=== PATIENT | male | born 1990 | race Hispanic/Latino ===

== ENCOUNTER 2021-04-05 20:50 | Emergency (ER) | payer SELFPAY ==
[~2021-04-05] VITALS: Ht 170.2 cm; Wt 78.0 kg
[2021-04-05 22:35] LABS: BASOPHILS % 0.4 % (0.0-1.0); EOSINOPHILS # (AUTO) 0.1 (0.0-0.4); EOSINOPHILS % 1.1 % (0.0-6.0); HEMATOCRIT 53.1 % (38.2-49.6); HEMOGLOBIN 18.1 g/dL (14.0-18.0); LYMPHOCYTES # (AUTO) 3.4 (1.0-3.2); LYMPHOCYTES % 34.6 % (18.0-39.1); MEAN CORPUSCULAR HEMOGLOBIN 29.4 pg (28-32); MEAN CORPUSCULAR HGB CONC 34.1 g/dL (31-35); MEAN CORPUSCULAR VOLUME 86.2 fL (81-99); MONOCYTES # (AUTO) 0.7 (0.2-0.8); MONOCYTES % 7.3 % (4.4-11.3); NEUTROPHILS # (AUTO) 5.6 (2.1-6.9); NEUTROPHILS % 56.2 % (38.7-80.0); PLATELET COUNT 327 x10e3/uL (140-360); RED BLOOD COUNT 6.16 x10e6/uL (4.3-5.7); RED CELL DISTRIBUTION WIDTH 13.1 % (11.7-14.4)
[2021-04-05 22:58] LABS: ALBUMIN 4.8 g/dL (3.5-5.0); ALBUMIN/GLOBULIN RATIO 1.1 (0.8-2.0); ANION GAP 18.5 mmol/L (8-16); CALCIUM 10.2 mg/dL (8.4-10.2); CREATININE, SERUM 0.93 mg/dL (0.72-1.25); POTASSIUM 3.5 mmol/L (3.5-5.1)
[2021-04-05 23:11] LABS: CREATINE KINASE MB 2.5 ng/mL (0-5.0)
[2021-04-05] MEDS ORDERED: SODIUM CHLORIDE 0.9% 1000ML 1,000 ML IV STA (23:27)
[2021-04-05 23:35] LABS: AMPHETAMINES SCREEN,URINE NEGATIVE (NEGATIVE); BENZODIAZEPINES SCREEN,URINE NEGATIVE (NEGATIVE); PHENCYCLIDINE SCREEN,URINE NEGATIVE (NEGATIVE)
[2021-04-06 02:43] VITALS: BP 139/77
== END 2021-04-06 02:48 | disposition home or self-care (01) ==
LOC: ER 21:05
DX: R07.89 Other chest pain (principal)
CPT/HCPCS: 36415; 71045; 80053; 80307; 82550; 82553; 84484; 85025; 85379; 93005; 99284

== ENCOUNTER 2024-05-03 20:23 | Emergency (ER) | payer SELFPAY ==
[~2024-05-03] VITALS: Ht 170.2 cm; Wt 72.6 kg
[2024-05-03 20:38] VITALS: TEMP 99.6
[2024-05-03] MEDS ORDERED: METHYLPREDNISOLONE SOD SUCC 125 MG/2ML VIAL ONE (20:46)
[2024-05-03] MEDS: METHYLPREDNISOLONE SOD SUCC 125 MG/2ML VIAL IM ONE (20:54)
[2024-05-03 22:18] VITALS: PULSE 82; RESP 20; O2SAT 100
== END 2024-05-03 22:40 | disposition home or self-care (01) ==
LOC: ER 20:30
DX: R50.9 Fever, unspecified (principal); R51.9 Headache, unspecified; J02.9 Acute pharyngitis, unspecified; Z77.028 Contact with and (suspected) exposure to other hazardous aromatic compounds; E11.9 Type 2 diabetes mellitus without complications; K21.9 Gastro-esophageal reflux disease without esophagitis; F17.210 Nicotine dependence, cigarettes, uncomplicated
CPT/HCPCS: 71046; 99283; J2919

== ENCOUNTER 2024-05-15 21:36 | Emergency (ER) | payer SELFPAY ==
[~2024-05-15] VITALS: Ht 170.2 cm; Wt 72.6 kg
[2024-05-15] MEDS ORDERED: KETOROLAC TROMETHAMINE 30 MG/ML VIAL IV STA ×2 (21:42→21:44)
[2024-05-15] MEDS ORDERED: ACETAMINOPHEN 325 MG TAB ONE (21:52)
[2024-05-15] MEDS: METHYLPREDNISOLONE SOD SUCC 125 MG/2ML VIAL IV STA (21:53)
[2024-05-15] MEDS ORDERED: SODIUM CHLORIDE 0.9% 1000ML 2,000 ML ONE (21:53)
[2024-05-15] MEDS: ACETAMINOPHEN 325 MG TAB PO STA (21:54)
[2024-05-15] MEDS: SODIUM CHLORIDE 0.9% 1000ML 2,000 ML IV STA (21:55)
[2024-05-15] MEDS: KETOROLAC TROMETHAMINE 30 MG/ML VIAL IV STA (21:58)
[2024-05-15] MEDS ORDERED: IOPAMIDOL 370 MG/ML 100 ML INFUS..BTL INJ ONE (22:00)
[2024-05-15 22:08] LABS: BASOPHILS % 0.3 % (0.0-1.0); EOSINOPHILS % 0.2 % (0.0-6.0); HEMATOCRIT 45.1 % (38.2-49.6); HEMOGLOBIN 14.8 g/dL (14.0-18.0); LYMPHOCYTES # (AUTO) 1.8 (1.0-3.2); LYMPHOCYTES % 16.8 % (18.0-39.1); MEAN CORPUSCULAR HEMOGLOBIN 29.1 pg (28-32); MEAN CORPUSCULAR HGB CONC 32.8 g/dL (31-35); MEAN CORPUSCULAR VOLUME 88.8 fL (81-99); MONOCYTES # (AUTO) 0.6 (0.2-0.8); MONOCYTES % 5.8 % (4.4-11.3); NEUTROPHILS # (AUTO) 8.4 (2.1-6.9); NEUTROPHILS % 76.6 % (38.7-80.0); PLATELET COUNT 247 x10e3/uL (140-360); RED BLOOD COUNT 5.08 x10e6/uL (4.3-5.7); RED CELL DISTRIBUTION WIDTH 11.9 % (11.7-14.4); WHITE BLOOD COUNT 10.95 x10e3/uL (4.8-10.8)
[2024-05-15 22:20] LABS: AMPHETAMINES SCREEN,URINE NEGATIVE (NEGATIVE); BENZODIAZEPINES SCREEN,URINE NEGATIVE (NEGATIVE); CANNABINOIDS SCREEN,URINE NEGATIVE (NEGATIVE); METHADONE SCREEN, URINE NEGATIVE (NEGATIVE); OPIATES SCREEN,URINE NEGATIVE (NEGATIVE); PHENCYCLIDINE SCREEN,URINE NEGATIVE (NEGATIVE)
[2024-05-15 22:23] LABS: ALBUMIN 3.9 g/dL (3.5-5.0); ALBUMIN/GLOBULIN RATIO 0.8 (0.8-2.0); ANION GAP 19.8 mmol/L (8-16); BILIRUBIN,TOTAL 0.7 mg/dL (0.2-1.2); CALCIUM 10.5 mg/dL (8.4-10.2); CREATININE, SERUM 1.18 mg/dL (0.72-1.25); POTASSIUM 3.8 mmol/L (3.5-5.1); TOTAL PROTEIN 8.9 g/dL (6.5-8.1)
[2024-05-15 22:29] LABS: TROPONIN I 0.005 ng/mL (0-0.300)
[2024-05-15 22:49] LABS: STREPTOCOCCUS GRP A ANTIGEN POSITIVE (NEGATIVE)
[2024-05-15] MEDS: INSULIN REGULAR, HUMAN 100 UNIT/1 ML IV STA (22:49)
[2024-05-15 22:55] LABS: INFLUENZAE A&B ANTIGEN (RAPID) NEGATIVE (NEGATIVE); RESPIRATORY SYNC. VIRUS NEGATIVE (NEGATIVE)
[2024-05-15 23:24] LABS: ABG HCO3 19 mmol/L (22-26); ABG PCO2 30 mmHg (35-45); ABG PH 7.41 (7.35-7.45); ABG PO2 100 mmHg (80-105); ABG TCO2 19
[2024-05-16 00:41] VITALS: PULSE 88; RESP 23; TEMP 98.1
[2024-05-16] MEDS ORDERED: KETOROLAC TROME10 MG PO (00:45)
[2024-05-16] MEDS ORDERED: VENTOLIN HFA18 GM INH (00:45)
[2024-05-16] MEDS ORDERED: AMOX TR-K CLV1 EAC2 PO (00:45)
[2024-05-16 00:51] VITALS: BP 125/78; PULSE 88; RESP 23; TEMP 98.1; O2SAT 98
== END 2024-05-16 01:01 | disposition home or self-care (01) ==
LOC: ER 21:42
DX: R50.9 Fever, unspecified (principal); J18.9 Pneumonia, unspecified organism; R07.89 Other chest pain; E11.65 Type 2 diabetes mellitus with hyperglycemia; J02.0 Streptococcal pharyngitis; R91.1 Solitary pulmonary nodule; R94.31 Abnormal electrocardiogram [ECG] [EKG]; Z87.19 Personal history of other diseases of the digestive system
CPT/HCPCS: 0223U; 36415; 36600; 71260; 80053; 80307; 82550; 82805; 82948; 83518; 83690; 83880; 84484; 85025; 87400; 87420; 93005; 99284; J1885; J2919; J7030; Q9967